=== PATIENT | male | born 1940 | race Caucasian/White ===

== ENCOUNTER 2018-11-28 09:22 | Emergency (ER) | payer OTHER ==
[~2018-11-28] VITALS: Ht 172.7 cm; Wt 83.9 kg
[~2018-11-28 09:22] MED LIST: ALLOPURINOL 30300 M2 PO; AMBIEN 5 MG TABL5 MG PO; ASPIR 8181 MG PO; ASPIRIN325 PO; COZAAR 50 MG TA50 M2 PO; MELATIN3 MG PO; PLAVIX 75 MG TA75 M1 PO; SIMVASTATIN40 MG PO
[2018-11-28] MEDS ORDERED: PRILOSEC OTC20 MG PO ×2 (09:54→10:02)
[2018-11-28 10:00] VITALS: BP 135/69
== END 2018-11-28 10:00 | disposition home or self-care (01) ==
LOC: ER 09:22
DX: J02.9 Acute pharyngitis, unspecified (principal); K21.9 Gastro-esophageal reflux disease without esophagitis; I25.10 Atherosclerotic heart disease of native coronary artery without angina pectoris; E78.00 Pure hypercholesterolemia, unspecified; I10 Essential (primary) hypertension; G47.30 Sleep apnea, unspecified; Z87.891 Personal history of nicotine dependence; Z79.899 Other long term (current) drug therapy

== ENCOUNTER → 2019-04-26 | Outpatient (CLI) | payer OTHER ==
[~2019-04-26] MED LIST changes: +PRILOSEC OTC20 MG PO
== END ==
LOC: MRI 09:21
DX: M47.22 Other spondylosis with radiculopathy, cervical region (principal); M50.01 Cervical disc disorder with myelopathy, high cervical region; M43.22 Fusion of spine, cervical region; M12.88 Other specific arthropathies, not elsewhere classified, other specified site; M48.02 Spinal stenosis, cervical region; M25.78 Osteophyte, vertebrae; M46.02 Spinal enthesopathy, cervical region; M51.24 Other intervertebral disc displacement, thoracic region

== ENCOUNTER → 2019-05-25 | Outpatient (CLI) | payer OTHER ==
[~2019-05-25] VITALS: Ht 172.7 cm; Wt 81.6 kg
[~2019-05-25] MED LIST changes: +ASPIRIN EC325 M1 PO; +MELATONIN10 M3 PO; +METFORMIN HCL500 MG PO
[2019-05-25 10:55] VITALS: BP 122/65
--- NOTE | 2019-05-25 11:21 | NUR ---
Pain Clinic Assessment: 1. History of Osteoarthritis: Not Applicable History of Rheumatoid Arthritis: Not Applicable 2. Height: 5 ft. 8 in. 172.7 cm. Weight: 180.0 lb. oz. 81.648 kg. Patient's BMI: 27.4 3. Vital Signs: BP: 122/65 Pulse: 64 Resp: 16 Temp: 02 Sat: 100 ECG Mon: 4. Pain Intensity: 5 5. Fall Risk: Dizziness: N Needs help standing or walking: N Fallen in the last 3 months: N Fall risk comments: 6. Patient on Blood Thinner: None 7. History of Hypertension: Y 8. Opioid Therapy greater than 6 weeks: N Opiate Contract Signed: 9. Risk Assessment Tool Provided: 10. Functional Assessment Tool: 11. Recreational Drug Use: Never Drug Type: Tobacco Use: Never Smoker Tobacco Type: Amount or Packs/day: How Many Years: Alcohol Use: No Frequency: Quant:
--- NOTE | 2019-06-01 12:14 | HPC ---
[facility] [place] [address] PAIN MANAGEMENT CONSULTATION Name: DIMITRIOS LUNA Room #: [facility] [id number] Admission: 05/25/19 Attend Phys: Francesco Buenrostro DO Discharge: Date of : 41 Report #: [id number] THIS REPORT FOR: //name// CC: Francesco Clinton MD DATE OF SERVICE: 05/25/2019 CHIEF COMPLAINT: Neck pain, left upper extremity pain. HISTORY OF PRESENT ILLNESS: As you know, the patient is a 79-year-old male who has been referred to our service by his primary care physician for suspected cervical radiculopathy. The patient has had longstanding neck pain over years, but has begun to experience mainly left upper extremity paresthesias. He sought evaluation through his primary care physician, who trialled conservative treatment course. Unfortunately, his symptoms did not improve. Due to lack of improvement with this treatment, the patient was sent to our clinic to discuss treatment options. He underwent MRI of the cervical spine on 04/26/2019 which showed significant cervical spondylosis and neural foraminal stenosis at multiple levels. There was also noted central canal stenosis at C5-C6 and to a lesser degree C6-C7. The patient indicates today pain is continuous, describes the pain as aching, sharp, intermittent numbness and tingling. Places current pain score 10/10, daily average at 5-10/10, worst pain has been is 10/10. The patient states that raising his arm exacerbates his symptoms, nothing tends to improve pain. He has been referred to our service to discuss treatment options for suspected cervical radiculopathy. PAST MEDICAL HISTORY: 1. Diabetes mellitus type 2. 2. Hypertension. 3. Coronary artery disease, status post percutaneous stenting. 4. History of prostate cancer, status post treatment. PAST SURGICAL HISTORY: Percutaneous stenting x 2 of the coronary arteries. SOCIAL HISTORY: The patient denies tobacco, alcohol, IV or illicit drug use. 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 He is working, not receiving workmen's compensation nor is he trying to obtain disability benefits. He is unaccompanied at today's visit. REVIEW OF SYSTEMS: Positive for weight gain, wearing corrective eyewear, hearing loss with tinnitus, heart trouble, status post percutaneous stenting, frequent urination, nocturia, insomnia, non-insulin dependent diabetes, slow to [facility] [address] [place] [address] PAIN MANAGEMENT CONSULTATION Name: DIMITRIOS LUNA [facility] #: [facility] [id number] Admission: 05/25/19 Attend Phys: Francesco Buenrostro DO Discharge: Date of : 41 Report #: [id number] heal after cuts, bleeding and bruising tendencies, chronic neck pain, bilateral upper extremity pain, left greater than right. All other review of systems negative per 12-point review of systems, and those listed in history of present illness. Pain impact score 42 of 70 indicating moderate interference of daily activities secondary to pain. ALLERGIES: No known drug allergies. CURRENT MEDICATIONS: Allopurinol 300 mg once a day, losartan 50 mg once a day, simvastatin 40 mg per day, zolpidem 5 mg p.o. at bedtime, aspirin 325 mg per day, melatonin 10 mg per day, metformin 500 mg 2 tabs with meals. IMAGING: MRI of cervical spine obtained on 04/26/2019 shows cervical spondylosis with bilateral neural foraminal stenosis at C3-C4, C4-C5, C5-C6, C6-C7. There is central canal stenosis at C5-C6 and C6-C7. PHYSICAL EXAMINATION: VITAL SIGNS: Blood pressure 122/65, pulse 64, respiratory rate 16 and unlabored. The patient is 100% on room air. Height 5 feet 8 inches tall. Weight 180 pounds. BMI calculated 27.4. GENERAL: Well-developed, well-nourished, well-hydrated 75-year-old male appearing stated age, pain is rated around 5/10 today. HEENT: Normocephalic, atraumatic. Pupils are equal, round, reactive to light. Extraocular muscles are intact. Sclerae nonicteric without injection. NEUROLOGIC: Cranial nerves 2-12 grossly intact. Speech is fluent. The patient deemed a good historian. LUNGS: Clear, no wheeze, rhonchi or rales. CARDIOVASCULAR: Regular. No appreciable gallop, no rub. ABDOMEN: Soft, nontender, nondistended, normoactive bowel sounds. EXTREMITIES: Show no clubbing, no cyanosis, and no edema. MUSCULOSKELETAL: Lower extremity strength equal and symmetrical 5/5. There is slight strength loss with abduction of the shoulders above 110 degrees bilaterally. Tinel sign is positive on the left, negative right. Phalen's positive left, negative right. Cervical provocation testing is met with increasing neck pain. There is crepitus noted with rotation and lateral flexion. Spurling's test is positive left, negative right. ASSESSMENT: 1. Cervical radiculopathy. 2. Spinal stenosis of the cervical spine. 3. Displacement of cervical intervertebral disk with radiculopathy. 4. Lumbosacral spondylosis with radiculopathy. 5. Carpal tunnel of the left hand. 6. Chronic intractable pain. [address] [address] PAIN MANAGEMENT CONSULTATION Name: DIMITRIOS LUNA Room #: REG [facility]#: [id number] Admission: 05/25/19 Attend Phys: Francesco Buenrostro DO Discharge: Date of : 41 Report #: [id number] PLAN: 1. Based on today's physical exam and history, the patient has provided the description the patient uses in regard to pain as well as location of symptoms, likely source of the patient's pain is a cervical radiculopathy. The patient is also suffering from left-sided carpal tunnel syndrome, which needs to be addressed as well. We discussed with the patient today the treatment options available for cervical radiculopathy involving the findings of his recent MRI. The patient and I discussed the following treatment options as a possible treatment course. The patient and I discussed physical therapy, stretching exercises and traction techniques as a treatment option. We discussed medication management, having suggestions made of neuropathic pain medication such as amitriptyline, nortriptyline, Cymbalta, Lyrica or gabapentin as treatment options along with a consistent nonsteroidal anti-inflammatory. We discussed cervical epidural injections for which the patient was referred to our clinic. We also discussed the surgical options available for the findings of his MRI and the physical exam. After reviewing the risks and benefits of all proposed treatment options, the patient chose to undergo cervical epidural injection under fluoroscopic guidance. 2. The patient was advised risks and benefits of a cervical epidural injection. These risks include but are not necessarily limited to bleeding, bruising, infection, worsening pain, no relief of pain, also risk of temporary or permanent muscle weakness, temporary or permanent nerve damage, possible paralysis and . The patient states understood and wished to proceed. 3. No medication changes made at today's visit. The patient will continue current medical therapy as prior prescribed. 4. We will see the patient back in followup visit on an as needed basis for possible next in the series of cervical epidural injections. 5. The patient is to look to his primary care physician for referral to discuss treatment for his left carpal tunnel syndrome. We recommend a surgical decompression as the option of treatment. He will follow up with his PCP in regard to his left carpal tunnel syndrome. 5. We wish to thank Dr. Clinton for the referral of patient to our clinic. We will keep you apprised of his response to treatment as we address his cervical radicular symptoms. We will be returning his to your capable hands to address his left-sided carpal tunnel syndrome. Again, we wish to thank you for the opportunity to see the patient in consultation. PROCEDURE NOTE PROCEDURE: C7-T1 cervical epidural steroid injection under fluoroscopic guidance. This is the first procedure of the first series that the patient is undergoing. After obtaining written consent, the patient was [place] [address] PAIN MANAGEMENT CONSULTATION Name: DIMITRIOS LUNA Room #: REG CLRadha Mittal#: [id number] Admission: 05/25/19 Attend Phys: Francesco Buenrostro DO Discharge: Date of : 41 Report #: [id number] suite and placed in a prone position with separate pillows under chest to decrease cervical lordosis. The skin overlying the cervical area was prepped and draped in an aseptic fashion. The C7-T1 vertebral interspace was identified by AP fluoroscopy. The skin and subcutaneous tissue overlying the target site of injection was anesthetized using 3 mL of 1% lidocaine. A 20 gauge 3-1/2 inch Tuohy needle was advanced under fluoroscopic guidance toward the epidural space using a midline approach. The epidural space was identified using a loss of resistance to air technique. After negative aspiration for heme or cerebrospinal fluid, a total of 1 mL of Omnipaque was injected. A cervical epidurogram was confirmed using AP and oblique fluoroscopy. After negative aspiration for heme or cerebrospinal fluid, 5 mL of a solution containing 2 mL 40 mg/mL 80 mg total triamcinolone along with 3 mL of lidocaine 1% was injected in increments. Contrast spread was noted from posterior epidural space. The needle was then retracted approximately correction and the needle track was flushed with 1 mL of 1% lidocaine. There were no apparent new sensory deficits in the upper extremities present following the procedure. A sterile bandage was placed over the injection site. The heart rate, pulse oximetry and blood pressure were continuously monitored after the procedure. There were no apparent complications. The patient tolerated the procedure well and was carefully escorted in the recovery room in stable condition. After meeting discharge criteria, the patient was discharged home. <ELECTRONICALLY SIGNED> By: Francesco Buenrostro DO 06/01/19 1214 0825 0920 Francesco Buenrostro DO /nt
== END | disposition home or self-care (01) ==
LOC: PAIN 06:39
DX: M50.10 Cervical disc disorder with radiculopathy, unspecified cervical region (principal); M48.02 Spinal stenosis, cervical region; G89.29 Other chronic pain; M47.27 Other spondylosis with radiculopathy, lumbosacral region; I10 Essential (primary) hypertension; E11.9 Type 2 diabetes mellitus without complications; I25.10 Atherosclerotic heart disease of native coronary artery without angina pectoris; K21.9 Gastro-esophageal reflux disease without esophagitis; Z85.46 Personal history of malignant neoplasm of prostate; Z98.890 Other specified postprocedural states; Z79.899 Other long term (current) drug therapy

== ENCOUNTER 2019-06-13 10:03 | Emergency (ER) | payer OTHER ==
[~2019-06-13] VITALS: Ht 172.7 cm; Wt 83.9 kg
[2019-06-13] MEDS ORDERED: NORCO 5-325 TA1 EAC1 PO (14:37)
[2019-06-13] MEDS ORDERED: LIDODERM1 EACH TOP (14:37)
[2019-06-13 14:50] VITALS: BP 128/66
[2019-06-20] MEDS ORDERED: LIDODERM1 EACH TOP (20:59)
[2019-06-20] MEDS ORDERED: NORCO 5-325 TA1 EAC1 PO (20:59)
[2019-06-22] MEDS ORDERED: GINKGO BILOBA30 MG PO (10:58)
[2019-06-22] MEDS ORDERED: NORCO 5-325 TA1 EAC1 PO (11:32)
== END 2019-06-13 14:58 | disposition home or self-care (01) ==
LOC: ER 10:03
DX: S22.31XA Fracture of one rib, right side, initial encounter for closed fracture (principal); S61.211A Laceration without foreign body of left index finger without damage to nail, initial encounter; I10 Essential (primary) hypertension; Z85.46 Personal history of malignant neoplasm of prostate; Z95.5 Presence of coronary angioplasty implant and graft; Z87.891 Personal history of nicotine dependence; W01.0XXA Fall on same level from slipping, tripping and stumbling without subsequent striking against object, initial encounter; Y93.89 Activity, other specified; Y92.89 Other specified places as the place of occurrence of the external cause; Y99.8 Other external cause status

== ENCOUNTER 2019-06-20 19:14 | Emergency (ER) | payer OTHER ==
[~2019-06-20] VITALS: Ht 172.7 cm; Wt 83.9 kg
[~2019-06-20 19:14] MED LIST changes: +LIDODERM1 EACH TOP; +NORCO 5-325 TA1 EAC1 PO
[2019-06-20] MEDS ORDERED: AUGMENTIN 875-1 EACH PO (20:58)
[2019-06-20] MEDS ORDERED: NORCO 5-325 TA1 EAC1 PO ×2 (20:59)
[2019-06-20] MEDS ORDERED: LIDODERM1 EACH TOP ×2 (20:59)
[2019-06-20 21:08] VITALS: BP 145/64
[2019-06-22] MEDS ORDERED: GINKGO BILOBA30 MG PO (10:58)
[2019-06-22] MEDS ORDERED: NORCO 5-325 TA1 EAC1 PO ×2 (11:32)
== END 2019-06-20 21:08 | disposition home or self-care (01) ==
LOC: ER 19:14
DX: S61.211D Laceration without foreign body of left index finger without damage to nail, subsequent encounter (principal); L08.9 Local infection of the skin and subcutaneous tissue, unspecified; I10 Essential (primary) hypertension; S22.39XD Fracture of one rib, unspecified side, subsequent encounter for fracture with routine healing; W01.0XXD Fall on same level from slipping, tripping and stumbling without subsequent striking against object, subsequent encounter; Z87.891 Personal history of nicotine dependence; Z79.82 Long term (current) use of aspirin; Z79.899 Other long term (current) drug therapy; Z85.46 Personal history of malignant neoplasm of prostate

== ENCOUNTER → 2019-06-22 | Outpatient (CLI) | payer OTHER ==
[~2019-06-22] VITALS: Ht 172.7 cm; Wt 85.7 kg
[~2019-06-22] MED LIST changes: +AUGMENTIN 875-1 EACH PO; +GINKGO BILOBA30 MG PO
[2019-06-22 10:42] VITALS: BP 138/68
--- NOTE | 2019-06-22 11:08 | NUR ---
Pain Clinic Assessment: 1. History of Osteoarthritis: Not Applicable History of Rheumatoid Arthritis: Not Applicable 2. Height: 5 ft. 8 in. 172.7 cm. Weight: 189.0 lb. oz. 85.730 kg. Patient's BMI: 28.7 3. Vital Signs: BP: 138/68 Pulse: 65 Resp: 16 Temp: 02 Sat: 98 ECG Mon: 4. Pain Intensity: 5; 10 IF LIFTING ARMS 5. Fall Risk: Dizziness: N Needs help standing or walking: N Fallen in the last 3 months: Y Fall risk comments: 6. Patient on Blood Thinner: None 7. History of Hypertension: Y 8. Opioid Therapy greater than 6 weeks: N Opiate Contract Signed: 9. Risk Assessment Tool Provided: 0-3, LOW RISK 10. Functional Assessment Tool: 11. Recreational Drug Use: Never Drug Type: Tobacco Use: Never Smoker Tobacco Type: Amount or Packs/day: How Many Years: Alcohol Use: No Frequency: Quant:
--- NOTE | 2019-06-29 08:39 | HPC ---
[facility] [place] [address] [address] [place] [address] PAIN MANAGEMENT CONSULTATION Name: DIMITRIOS LUNA Room #: REG [facility] [id number] Admission: 06/22/19 Attend Phys: Francesco Buenrostro DO Discharge: Date of : 41 Report #: [id number] THIS REPORT FOR: //name// CC: Francesco Clinton MD DATE OF SERVICE: 06/22/2019 REFERRING PHYSICIAN: Dr. Casey Clinton. CHIEF COMPLAINT: Neck pain, left upper extremity pain. HISTORY OF PRESENT ILLNESS: As you know, the patient is a 79-year-old male referred to our service by his primary care physician for suspected cervical radiculopathy. He states he has had longstanding neck pain over the years, mainly experienced is axial neck pain, but over time, his pain began to radiate down his left arm. He was seen in consultation per the request of Dr. Clinton on 05/25/2019, diagnosed with cervical radiculopathy secondary to spinal stenosis of the cervical spine. He underwent a cervical epidural injection under fluoroscopic guidance, which according to the patient provided improvement in symptoms of greater than 100%, lasting for 5-7 days with a slow and progressive return of symptoms back to a level now of 5/10. He states he continues to experience pain bilaterally with utilizing his upper extremities that he places at 10/10. He returns to discuss possible referral to Neurosurgery as he does not wish to "continued to bandage over his problem." He returns today reporting pain level of 5/10 on an average. He denies new injury or trauma that may have led to symptom continuation. ALLERGIES: No known drug allergies. CURRENT MEDICATIONS: Allopurinol 300 mg once a day, losartan 50 mg once a day, simvastatin 40 mg per day, zolpidem 5 mg p.o. at bedtime, aspirin 325 mg per day, melatonin 10 mg once a day, metformin 500 mg 2 tabs with meals. SOCIAL HISTORY: The patient denies tobacco, alcohol, IV or illicit drug use. 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 He is working, not receiving workmen's compensation, accompanied by his who is present in room today. IMAGING: No new imaging available. PHYSICAL EXAMINATION: VITAL SIGNS: Blood pressure 138/68, pulse 65, respiratory rate 16 and unlabored. The patient is 98% on room air. Height 5 feet 8 inches tall, weight 189 pounds, BMI calculated 28.7. GENERAL: Well-developed, well-nourished, well-hydrated 79[place] [address] PAIN MANAGEMENT CONSULTATION Name: DIMITRIOS LUNA Room #: REG [facility]#: [id number] Admission: 06/22/19 Attend Phys: Francesco Buenrostro DO Discharge: Date of : 41 Report #: [id number] appearing stated age, pain is rated anywhere from 5-10/10 depending on activity. HEENT: Normocephalic, atraumatic. Pupils equal, round, reactive to light. Extraocular muscles are intact. EXTREMITIES: Show no clubbing, no cyanosis, no edema. MUSCULOSKELETAL: Upper extremity strength remains equal and symmetrical 5/5. Slight loss of strength with abduction of the shoulders just above 110 degrees bilaterally, which is similar to previous evaluation. Cervical provocation testing is once again met with increasing neck pain. This is noted with extension, rotation and lateral flexion. Spurling's test positive for left. ASSESSMENT: 1. Cervical radiculopathy. 2. Spinal stenosis of the cervical spine. 3. Displacement of cervical intervertebral disk with radiculopathy. 4. Cervical spondylosis with radiculopathy. 5. Chronic intractable pain. PLAN: 1. The patient returns today in followup visit having noted 100% improvement in overall pain with a cervical epidural injection provided at our last visit. Unfortunately, this only lasted for approximately 5 days with a slow and progressive return of symptoms. He is now back to his baseline of 5/10 on a daily average up to 10/10 with activity. He returns today in followup visit requesting more definitive treatment course. He states he "just does not want a bandage." He has requested that he be referred to see Neurosurgery in regards to potential surgical options. We did discuss the other potential treatment options including medication management, physical therapy, repeating the cervical epidural injection, but the patient did request a referral to Neurosurgery for further evaluation to determine if there is a surgical option. 2. The patient will be referred to Neurosurgery of [facility]. I have made a tentative appointment with the patient to see the first available nurse practitioner to review his case. I have advised the patient to collect all his information including digital form of his MRI of the cervical spine to take with him to that appointment. It is imperative that the patient take all information with him so that consultation can be completed on an initial visit. He will keep us apprised of the timing of his appointment as well as the discussion after the appointment has completed. 3. We will start the patient on hydrocodone 5/325 one tab p.o. q. 8 hours p.r.n. for pain. Again, the patient with #60 tablets one month worth of medication. I advised the patient not to take the medication prophylactically. He should take medication only when pain is intolerable. He is to watch for side effects of sleepiness, disorientation, confusion, mental slowing and constipation with its use. If he notes any side effects, contact our clinic. 4. We will see the patient back in followup visit on an as needed basis. We will await the consultation recommendations from Neurosurgery, but will be [facility] [address] [place] [address] PAIN MANAGEMENT CONSULTATION Name: SRUTHIGwendolynDIMITRIOS Room #: REG JEFERSON Mittal#: [id number] Admission: 06/22/19 Attend Phys: Francesco Buenrostro DO Discharge: Date of : 41 Report #: [id number] available to see the patient back in followup visit for interventional treatments as requested. <ELECTRONICALLY SIGNED> By: Francesco Buenrostro DO 06/29/19 0839 1241 [id number] Francesco Buenrostro DO /nt
== END ==
LOC: PAIN 06:55
DX: M48.02 Spinal stenosis, cervical region (principal); M50.10 Cervical disc disorder with radiculopathy, unspecified cervical region; M47.22 Other spondylosis with radiculopathy, cervical region; M79.641 Pain in right hand; G89.29 Other chronic pain; Z79.899 Other long term (current) drug therapy

== ENCOUNTER → 2019-11-25 | Outpatient (CLI) | payer OTHER | LOC: SJCVC 10:15 | PROVIDERS: ATTEND Internal Medicine Cardiovascular Disease | DX: I25.10 Atherosclerotic heart disease of native coronary artery without angina pectoris (principal); R00.1 Bradycardia, unspecified; E78.00 Pure hypercholesterolemia, unspecified; I10 Essential (primary) hypertension; E11.9 Type 2 diabetes mellitus without complications; I77.810 Thoracic aortic ectasia; Z79.899 Other long term (current) drug therapy; Z87.891 Personal history of nicotine dependence ==

== ENCOUNTER → 2019-12-09 | Outpatient (CLI) | payer OTHER | LOC: LAB 13:38 | PROVIDERS: ATTEND Family Medicine | DX: Z03.818 Encounter for observation for suspected exposure to other biological agents ruled out (principal) ==

== ENCOUNTER → 2019-12-24 | Outpatient (CLI) | payer OTHER | LOC: SJCVCIMAG 12-14 09:39 | PROVIDERS: ATTEND Internal Medicine Cardiovascular Disease | DX: R06.09 Other forms of dyspnea (principal); I25.10 Atherosclerotic heart disease of native coronary artery without angina pectoris; E78.5 Hyperlipidemia, unspecified; I10 Essential (primary) hypertension; Z87.891 Personal history of nicotine dependence; Z79.82 Long term (current) use of aspirin; Z79.899 Other long term (current) drug therapy ==

== ENCOUNTER → 2020-04-28 | Outpatient (CLI) | payer OTHER | LOC: LAB 09:33 | PROVIDERS: ATTEND Student in an Organized Health Care Education/Training Program | DX: Z20.828 Contact with and (suspected) exposure to other viral communicable diseases (principal) ==

== ENCOUNTER 2020-05-03 06:22 | Day surgery (SDC) | payer OTHER ==
[~2020-05-03] VITALS: Ht 172.7 cm; Wt 85.3 kg
--- NOTE | ~2020-05-03 | O ---
[facility] [place] [address] [place] [address] OPERATIVE REPORT Name: DIMITRIOS LUNA Room #: 150-2 [facility] MCristina.#: [id number] Admission: 05/03/20 Attend Phys: Cole Knox Discharge: Date of : 41 Report #: [id number] THIS REPORT FOR: cc: Casey Clinton MD, Neal A. MD VanDenBerghe, Gregory R. MD ~ CC: Billy Clinton DATE OF SERVICE: 05/03/2020 PREOPERATIVE DIAGNOSES: Right shoulder pain, rotator cuff tear, biceps tendinopathy, impingement syndrome. POSTOPERATIVE DIAGNOSES: Right shoulder pain, rotator cuff tear, medium size complex labral tear, intra-articular synovitis, subacromial bursitis, humeral head chondromalacia. PROCEDURE PERFORMED: Right shoulder arthroscopy, rotator cuff repair, extensive debridement. SURGEON: Cole Gibson MD CROP RANCH HAND: Karen Harp PA-C. ANESTHESIA: General with preoperative ultrasound-guided interscalene block. FLUIDS: 400 mL crystalloid. ESTIMATED BLOOD LOSS: 3 mL. DESCRIPTION OF PROCEDURE: After proper identification of the patient and operative site in preoperative holding area, the operative site was signed by myself. Prophylactic antibiotics given. The patient elected to receive an ultrasound-guided block after reviewing the risks, benefits, alternatives and potential complications with anesthesia. After a satisfactory block, the patient was brought back to the operative suite after induction of satisfactory general anesthesia per LMA. The patient was carefully positioned in the left lateral decubitus position. The right shoulder had been stable throughout a full arc of motion. Right shoulder was sterilely prepped and draped in the usual manner and placed in 10 pounds of balanced arthroscopic suspension. Posterior portal was established, joint was inflated with an arthroscopic pump set at 40 mmHg. Anterior superior portal was created using a spinal needle for localization, some superior labral fraying and tearing was noted that also extended into the posterior inferior quadrants. Frayed labrum was carefully [facility] [address] [place] [address] OPERATIVE REPORT Name: DIMITRIOS LUNA Room #: 150-2 [facility] M.Michael.#: [id number] Admission: 05/03/20 Attend Phys: Cole Knox Discharge: Date of : 41 Report #: [id number] debrided with motorized shaver as well as radiofrequency wand. Intraarticular synovitis was noted, especially around the root of the biceps tendon and superior capsule. This was carefully debrided. Some thinning of the humeral head chondral surface was noted inferiorly. Subscapularis was intact. No upper border tearing was noted. Long head of the biceps tendon was intact. No groove pathology was noted. There was a full thickness minimally retracted tear of the supraspinatus. Articular articular-sided fibers that were frayed were carefully debrided. The arthroscope was then introduced into the subacromial space where mildly thickened bursa was encountered. This was resected for visualization purposes. There was no significant bony prominence of the anterolateral acromion and a bony decompression was not performed. There was a crescent shaped minimally retracted tear approximately 2 cm of the more anterior supraspinatus. Footprint was carefully debrided with a sharp ring curette and motorized shaver. An Arthrex 4.75 mm triple-loaded anchor with FiberTape and two #2 FiberWires was carefully positioned just off the articular margin. Sutures were passed in a horizontal mattress fashion. Sutures were tied and then a second anchor was placed laterally creating a double row construct. Repair construct was stable to probing, nicely reduced the tendon into the greater tuberosity and was stable to probing. Subacromial space thoroughly irrigated with normal saline. Portals closed with simple nylon stitch. Sterile dressing was applied. The patient will be immobilized in a sling and abduction pillow for 6 weeks postoperatively. A qualified ortho assistant utilized throughout the entire procedure to aid in patient limb positioning, visualization with arthroscope instrument and suture passage as well as closure and sling application. By: 0849 0900 Cole Gibson MD /kell
[~2020-05-03 06:22] MED LIST changes: +ALKA-SELTZER P1 EAC2 PO; +VITAMIN B-121000 MC2 SUBLING; +[UNRECOGNIZED DRUG - OTHER] TOP
[2020-05-03 06:52] VITALS: BP 132/68
[2020-05-03 09:20] VITALS: BP 132/68
== END 2020-05-03 10:00 | disposition home or self-care (01) ==
LOC: OR 06:22 → TBA 06:22 → OR 10:00
PROVIDERS: ATTEND Orthopaedic Surgery Sports Medicine
DX: M25.511 Pain in right shoulder (principal); M75.101 Unspecified rotator cuff tear or rupture of right shoulder, not specified as traumatic; M75.41 Impingement syndrome of right shoulder; S43.491A Other sprain of right shoulder joint, initial encounter; M65.811 Other synovitis and tenosynovitis, right shoulder; M94.211 Chondromalacia, right shoulder; M75.51 Bursitis of right shoulder; I10 Essential (primary) hypertension; E11.9 Type 2 diabetes mellitus without complications; I25.2 Old myocardial infarction; E78.5 Hyperlipidemia, unspecified; G47.30 Sleep apnea, unspecified; Z87.891 Personal history of nicotine dependence; Z98.890 Other specified postprocedural states; Z79.899 Other long term (current) drug therapy; Z85.828 Personal history of other malignant neoplasm of skin; Z85.46 Personal history of malignant neoplasm of prostate; Z79.82 Long term (current) use of aspirin; X58.XXXA Exposure to other specified factors, initial encounter; Y93.89 Activity, other specified; Y92.89 Other specified places as the place of occurrence of the external cause; Y99.8 Other external cause status
CPT/HCPCS: 50010; 50101; 50172; 50386; 50417; 50935; 51320; 51847; 52001; 52313; 53610; 56527; 57103; 57419; 57420; 62110; 62900; 70005

== ENCOUNTER → 2020-05-29 | Outpatient (CLI) | payer OTHER | LOC: SJCVC 14:49 | PROVIDERS: ATTEND Internal Medicine Cardiovascular Disease | DX: I25.10 Atherosclerotic heart disease of native coronary artery without angina pectoris (principal); I10 Essential (primary) hypertension; E78.00 Pure hypercholesterolemia, unspecified; I25.5 Ischemic cardiomyopathy; E11.51 Type 2 diabetes mellitus with diabetic peripheral angiopathy without gangrene; Z87.891 Personal history of nicotine dependence; Z72.89 Other problems related to lifestyle ==

== ENCOUNTER → 2021-01-05 | Outpatient (CLI) | payer OTHER ==
[~2021-01-05] VITALS: Ht 172.7 cm; Wt 81.7 kg
[~2021-01-05] MED LIST changes: +ALLOPURINOL 30300 M1 PO; -ALLOPURINOL 30300 M2 PO; +COZAAR 50 MG TA50 M1 PO; -COZAAR 50 MG TA50 M2 PO; +VITAMIN B-121000 MC2 PO; -VITAMIN B-121000 MC2 SUBLING; +[UNRECOGNIZED DRUG - OTHER] PO
--- NOTE | ~2021-01-05 | P ---
[facility] [place] [address] PROCEDURE REPORT Name: DIMITRIOS LUNA Room #: [facility] [id number] Admission: 01/05/21 Attend Phys: Scott Velez Discharge: Date of : 42 Report #: [id number] THIS REPORT FOR: cc: Casey Clinton MD,Scott Portillo MD, MD ~ cc: Casey Clinton MD, Billy Augustine MD DATE OF SERVICE: 01/05/2021 PROCEDURE PERFORMED: Colonoscopy with biopsies. HISTORY OF PRESENT ILLNESS: The patient is a 80-year-old male with a history of anemia. Upper endoscopy was just performed showing mild gastritis with several small erosions. No evidence of bleeding. Plan is for colonoscopy. DESCRIPTION OF PROCEDURE: The risks and benefits of the procedure were explained to the patient, those risks including but not limited to bleeding, perforation and the risk of sedation. He understood these risks and gave informed consent. Sedation was given using propofol per anesthesia. Next, a digital rectal exam was initially performed, which was normal. Next, using a standard Olympus colonoscope, the scope was placed in the patient's anus and advanced under direct vision to the cecum. The overall prep was good. The cecum and ileocecal valve were normal in appearance. In the ascending colon, a small 3 mm sessile polyp was noted. This was removed with cold forceps. Scattered diverticula were noted in the ascending and transverse colon, otherwise normal. Descending colon normal. Multiple diverticula noted in the sigmoid colon. No evidence of inflammation, otherwise normal. The rectal mucosa was normal. On retroflexion, no abnormalities were noted. The scope was then withdrawn and the procedure terminated. The patient tolerated the procedure well. IMPRESSION: 1. Pandiverticulosis. 2. Small colon polyp. 3. Otherwise, normal colonoscopy. RECOMMENDATIONS: 1. Await biopsy results. 2. There was no evidence of bleeding on EGD or colonoscopy today. Plan is to start daily PPI therapy and monitor hemoglobin due to gastric erosions and mild gastritis. If anemia persists, would recommend hemoccult checking stools at that point. [facility] [address] [place] [address] PROCEDURE REPORT Name: DIMITRIOS LUNA Room #: REG [facility]#: [id number] Admission: 01/05/21 Attend Phys: Scott Velez Discharge: Date of : 42 Report #: [id number] Thank you for allowing me to participate in his care. By: 0827 1835 Scott Rollins MD /nt
--- NOTE | ~2021-01-05 | P ---
[facility] [address] PROCEDURE REPORT Name: DIMITRIOS LUNA [facility]: [id number] Admission: 01/05/21 Attend Phys: Scott Velez Discharge: Date of : 42 Report #: [id number] THIS REPORT FOR: cc: Casey Clinton MD, Neal A. MD McElhinney, Christian C. MD ~ cc: Casey Clinton MD, Billy Augustine MD DATE OF SERVICE: 01/05/2021 PROCEDURE PERFORMED: Upper endoscopy with biopsies. HISTORY OF PRESENT ILLNESS: The patient is a 80-year-old male with a history of anemia, recent dark stools, was scheduled for colonoscopy. Plan is for EGD and colonoscopy today. He also takes aspirin on a regular basis. He denies any nausea, vomiting, reflux or dysphagia. DESCRIPTION OF PROCEDURE: The risks and benefits of the procedure were explained to the patient, those risks including but not limited to bleeding, perforation and the risk of sedation. He understood these risks and gave informed consent. Sedation was given using propofol per anesthesia. Next, using a standard Olympus upper endoscope, the scope was placed in the patient's mouth and advanced under direct vision through the esophagus, stomach and into the second portion of the duodenum. The larynx was normal in appearance. The esophagus was normal throughout. The GE junction was normal. Overall, the gastric mucosa was normal in the fundus and body, mild gastritis with several small erosions was noted in the gastric antrum. No evidence of bleeding. Biopsies were obtained to rule out H. pylori. The pylorus was normal and patent. The duodenal bulb, first and second portion were normal. Biopsies were obtained to rule out the possibility of celiac sprue. Scope was then withdrawn and the procedure terminated. The patient tolerated the procedure well. IMPRESSION: 1. Mild gastritis with several small erosions. No evidence of bleeding at this time. Possible source of anemia. 2. Otherwise, normal upper endoscopy. RECOMMENDATIONS: 1. Await biopsy results. 2. Recommend a trial of daily PPI therapy and monitoring hemoglobin. 3. We will proceed with colonoscopy next today. [facility] [address] [place] [address] PROCEDURE REPORT Name: DIMITRIOS LUNA Room #: REG [facility].#: [id number] Admission: 01/05/21 Attend Phys: Scott Velez Discharge: Date of : 42 Report #: [id number] Thank you for allowing me to participate in his care. By: [id number] Scott Rollins MD /nt
--- NOTE | 2021-01-09 11:07 | PATH ---
[facility] [place] [address] [address] PATHOLOGY RPT PROCEDURE Name: DIMITRIOS IRWIN Room #: REG [facility] M.R.#: [id number] Admission: 01/05/21 Date of : 42 Discharge: Report #: [id number] Path Case #: [id number] [facility] Accession Number: [id number] . 01 Material submitted: . PART A: duodenum - DUODENAL BIOPSY R/O SPRUE; HX ANEMIA PART B: gastrointestinal site - BIOPSY GASTRITIS R/O H. PYLORI PART C: colon - BIOPSY ASCENDING COLON POLYP. Modifiers: ascending . 01 Clinical history: . IRON DEF ANEMIA,BLACK STOOLS . 02 Diagnosis: A. Small bowel mucosa, duodenum, rule out sprue, endoscopic biopsy: - No diagnostic abnormalities present. - Negative for villous blunting or increase in intraepithelial lymphocytes. . B. Gastric mucosa, gastritis, rule out H. pylori, endoscopic biopsy: - Mild chronic gastritis with features of reactive gastropathy. - Negative for intestinal metaplasia or atrophy. - Negative for Helicobacter pylori (properly controlled immunohistochemical stain performed). . C. Polyp, ascending colon polyp, endoscopic biopsy: - Tubular adenoma. - Negative for high-grade dysplasia. (IUV:pit; 01/08/2021) QTP 01/08/2021 1710 Local . 02 Electronically signed: . Marisol Downs MD, Pathologist NPI- [id number] . 01 Gross description: . A. The specimen is received in formalin, labeled "Dimitrios Irwin, duodenal biopsy". Received are two segments of pale hunt tissue measuring 0.3 cm each in maximum dimensions. The specimen is submitted entirely in cassette A1. . B. The specimen is received in formalin, labeled "Dimitrios Irwin, biopsy gastritis". Received are two segments of pale hunt tissue measuring 0.4 cm each in maximum dimensions. The specimen is submitted entirely in cassette B1. . C. The specimen is received in formalin, labeled "Dimitrios Irwin, biopsy ascending colon polyp". Received is a segment of pale hunt tissue [address] [address] PATHOLOGY RPT PROCEDURE Name: DIMITRIOS IRWIN Room #: REG [facility].#: [id number] Admission: 01/05/21 Date of : 42 Discharge: Report #: [id number] Path Case #: [id number] measuring 0.4 cm in maximum dimensions. The specimen is submitted entirely in cassette C1. (CAA; 01/06/2021) QAC/QAC 01/06/2021 1737 Local . 02 Pathologist provided ICD-10: K29.50, D12.2, D50.9, R19.5 . 02 CPT . 582141, 566850, 881426, S81152 Specimen Comment: A courtesy copy of this report has been sent to [phone], [phone] Specimen Comment: [id number] Specimen Comment: Report sent to / DR BURKS Performed at: [address] [facility], [place] [id number] MD Celso David MD Phone: [phone] Performed at: [address] [id number] MD Marisol Downs MD Phone: [phone]
== END | disposition home or self-care (01) ==
LOC: LAB 12-27 09:52 → GI 07:00
PROVIDERS: ATTEND Specialist
DX: K92.1 Melena (principal); D12.2 Benign neoplasm of ascending colon; K57.30 Diverticulosis of large intestine without perforation or abscess without bleeding; K29.50 Unspecified chronic gastritis without bleeding; K31.9 Disease of stomach and duodenum, unspecified; I10 Essential (primary) hypertension; E11.9 Type 2 diabetes mellitus without complications; I25.2 Old myocardial infarction; E78.5 Hyperlipidemia, unspecified; D50.9 Iron deficiency anemia, unspecified; M10.9 Gout, unspecified; Z98.890 Other specified postprocedural states; Z79.899 Other long term (current) drug therapy; Z85.828 Personal history of other malignant neoplasm of skin; Z85.46 Personal history of malignant neoplasm of prostate; Z87.891 Personal history of nicotine dependence
CPT/HCPCS: 62110; 62900

== ENCOUNTER → 2021-02-27 | Outpatient (CLI) | payer OTHER | LOC: SJCVC 11:06 | PROVIDERS: ATTEND Internal Medicine Cardiovascular Disease | DX: I25.10 Atherosclerotic heart disease of native coronary artery without angina pectoris (principal); I10 Essential (primary) hypertension; E78.00 Pure hypercholesterolemia, unspecified; E11.9 Type 2 diabetes mellitus without complications; R07.89 Other chest pain; R09.89 Other specified symptoms and signs involving the circulatory and respiratory systems; I25.5 Ischemic cardiomyopathy; Z87.891 Personal history of nicotine dependence; Z79.899 Other long term (current) drug therapy; Z79.84 Long term (current) use of oral hypoglycemic drugs; Z79.82 Long term (current) use of aspirin; Z72.89 Other problems related to lifestyle ==

== ENCOUNTER → 2021-04-26 | Outpatient (CLI) | payer OTHER | LOC: SJCVCIMAG 06:47 | PROVIDERS: ATTEND Internal Medicine Cardiovascular Disease | DX: I65.23 Occlusion and stenosis of bilateral carotid arteries (principal); E11.9 Type 2 diabetes mellitus without complications; I25.10 Atherosclerotic heart disease of native coronary artery without angina pectoris; I10 Essential (primary) hypertension; E78.00 Pure hypercholesterolemia, unspecified; R07.89 Other chest pain; R09.89 Other specified symptoms and signs involving the circulatory and respiratory systems; I42.9 Cardiomyopathy, unspecified; I73.9 Peripheral vascular disease, unspecified; Z79.84 Long term (current) use of oral hypoglycemic drugs; Z79.82 Long term (current) use of aspirin; Z79.899 Other long term (current) drug therapy; Z72.89 Other problems related to lifestyle; Z87.891 Personal history of nicotine dependence ==